=== PATIENT | male | born 1975 | race Caucasian/White ===

== ENCOUNTER 2022-08-18 01:07 | Inpatient (IN) | payer OTHER ==
[~2022-08-18] VITALS: Ht 154.9 cm; Wt 88.5 kg
[2022-08-18] MEDS ORDERED: METHYLPREDNISOLONE SOD SUCC 125 MG/2 ML VIAL IV STA (01:27)
[2022-08-18] MEDS ORDERED: MAGNESIUM 2 G PREMIX 50 ML IV STA (01:27)
[2022-08-18] MEDS ORDERED: ALBUTEROL (0.083%) 2.5MG/3ML NEB HHN STA (01:27)
[2022-08-18] MEDS ORDERED: IPRATROPIUM BROMIDE (0.02%) 0.5MG/2.5ML NEB HHN STA (01:27)
[2022-08-18] MEDS ORDERED: SODIUM CHLORIDE 0.9% 1,000 ML IV ONE (01:30)
[2022-08-18 01:41] LABS: BASOPHILS % 0.8 % (0.0-2.0); EOSINOPHILS % 2.2 % (0.0-5.0); HEMATOCRIT. 36.4 % (42.0-52.0); LYMPHOCYTES % 24.9 % (20.0-50.0); MEAN CORPUSCULAR HEMOGLOBIN 25.1 pg (28.0-32.0); MEAN CORPUSCULAR VOLUME 76.5 fL (80.0-94.0); MEAN PLATELET VOLUME 8.9 fl (7.4-10.4); MONOCYTES % 5.4 % (2.0-8.0); NEUTROPHILS % 66.7 % (40.0-76.0); PLATELET 212 x1000/uL (130-400); RED BLOOD CELL COUNT 4.76 mill/uL (4.7-6.1); RED CELL DISTRIBUTION WIDTH 16.5 % (11.6-14.6)
[2022-08-18 01:48] LABS: CHLORIDE 104 mEq/L (98-107)
[2022-08-18] MEDS ORDERED: CEFTRIAXONE 1GM PREMIX 50 ML IV NR (02:30)
[2022-08-18] MEDS ORDERED: AZITHROMYCIN 500MG/250ML 250 ML IV NR (02:30)
[2022-08-18] MEDS ORDERED: HYDROCODONE/ACETAMINOPHEN 5/325MG TABLET PO ONE (04:00)
[2022-08-18] MEDS ORDERED: ASPIRIN 325MG TABLET PO ONE (04:00)
[2022-08-18] MEDS ORDERED: HEPARIN 5000 UNITS/ML VIAL IV ONE (04:15)
[2022-08-18] MEDS ORDERED: HEPARIN 25,000 UNITS PREMIX 250 ML IV ONE (04:15)
[2022-08-18 04:39] LABS: INR 1.1; PARTIAL THROMBOPLASTIN TIME 26.6 sec (23.4-31.0); PROTHROMBIN TIME 11.4 sec (9.6-11.0)
[2022-08-18] MEDS ORDERED: HEPARIN 25,000 UNITS PREMIX 250 ML IV SCH (04:45)
[2022-08-18] MEDS ORDERED: HEPARIN 60 UNITS/KG BOLUS IV NR (05:00)
[2022-08-18] MEDS ORDERED: FUROSEMIDE 40MG/4ML VIAL IVP ONE (05:45)
[2022-08-18 10:00] LABS: BG BASE EXCESS -5.5 mmol/L (-2.0-2.0); BG DEOXYHEMOGLOBIN 0.5 % (0.0-5.0); BG FRACTION INSPIRED OXYGEN 100; BG HCO3 ACT 19.6 mmol/L (22.0-26.0); BG METHEMOGLOBIN 0.8 % (0.0-1.5); BG OXYGEN SATURATION 99.5 % (92.0-98.5); BG OXYHEMOGLOBIN 98.7 % (94.0-97.0); BG PCO2 37.4 mmHg (35.0-45.0); BG PH 7.338 (7.350-7.450); BG PO2 350.5 mmHg (75.0-100.0); BG SAMPLE SITE RIGHT RADIAL; BG TOTAL HEMOGLOBIN 13.7 g/dL (12.0-18.0); BG VENT MODE MASK - BIPAP
[2022-08-18] MEDS ORDERED: MONTELUKAST SODIUM 10MG TABLET PO NR (10:15)
[2022-08-18] MEDS ORDERED: IPRATROPIUM/ALBUTEROL 0.5-3(2.5)MG/3ML NEB HHN PRN (10:15)
[2022-08-18] MEDS ORDERED: FUROSEMIDE 40MG/4ML VIAL IVP NR (10:15)
[2022-08-18] MEDS ORDERED: DEXTROSE 50% WATER 50ML SYRINGE IV PRN (10:30)
[2022-08-18] MEDS ORDERED: HEPARIN BOLUS PRN aPTT <30 IV (11:00)
[2022-08-18] MEDS ORDERED: HEPARIN BOLUS PRN aPTT 30-44 IV (11:00)
[2022-08-18] MEDS: IPRATROPIUM/ALBUTEROL 0.5-3(2.5)MG/3ML NEB HHN SCH ×3 (11:15→19:55)
[2022-08-18] MEDS: METHYLPREDNISOLONE SOD SUCC 125 MG/2 ML VIAL IV SCH ×3 (12:25→23:13)
[2022-08-18] MEDS: BLOOD SUGAR DIAGNOSTIC STRIP TEST SCH ×3 (13:10→21:04)
[2022-08-18] MEDS ORDERED: IOHEXOL-350 100 ML BOTTLE ONE (13:11)
[2022-08-18] MEDS ORDERED: INSULIN GLARGINE 100 UNITS/ML SUBCUT NR (13:15)
[2022-08-18] MEDS: INSULIN LISPRO 100 UNITS/ML SUBCUT SCH ×3 (13:23→21:19)
[2022-08-18] MEDS: FUROSEMIDE 40MG/4ML VIAL IVP SCH (13:24)
[2022-08-18 16:00] VITALS: BP 127/78
[2022-08-18 17:23] VITALS: BP 127/78
[2022-08-18] MEDS: ENOXAPARIN 100MG/ML SYR SUBCUT SCH (17:46)
[2022-08-18 20:00] VITALS: BP 110/70
[2022-08-18] MEDS: FAMOTIDINE 20MG/2ML VIAL IV SCH (21:18)
[2022-08-18] MEDS ORDERED: INSULIN GLARGINE 100 UNITS/ML SUBCUT SCH (22:00)
[2022-08-19] VITALS: BP 128/80
[2022-08-19] MEDS: IPRATROPIUM/ALBUTEROL 0.5-3(2.5)MG/3ML NEB HHN SCH ×7 (00:43→23:58)
[2022-08-19 04:00] VITALS: BP 113/74
[2022-08-19] MEDS: BLOOD SUGAR DIAGNOSTIC STRIP TEST SCH ×4 (05:52→21:00)
[2022-08-19] MEDS: METHYLPREDNISOLONE SOD SUCC 125 MG/2 ML VIAL IV SCH ×3 (06:25→16:58)
[2022-08-19] MEDS: ENOXAPARIN 100MG/ML SYR SUBCUT SCH ×2 (06:26→16:05)
[2022-08-19] MEDS: INSULIN LISPRO 100 UNITS/ML SUBCUT SCH ×4 (06:29→21:45)
[2022-08-19 08:00] VITALS: BP 104/68
[2022-08-19] MEDS: FUROSEMIDE 40MG/4ML VIAL IVP SCH ×2 (09:02→16:58)
[2022-08-19] MEDS: LORATADINE 10MG TABLET PO SCH (09:03)
[2022-08-19] MEDS: ASPIRIN 81MG TABLET PO SCH (09:03)
[2022-08-19 09:46] LABS: HEMOGLOBIN. 11.7 g/dL (14.0-18.0); MEAN PLATELET VOLUME 9.6 fl (7.4-10.4); PLATELET 232 x1000/uL (130-400); RED BLOOD CELL COUNT 4.67 mill/uL (4.7-6.1); RED CELL DISTRIBUTION WIDTH 16.4 % (11.6-14.6)
[2022-08-19 09:56] LABS: CHLORIDE 105 mEq/L (98-107)
[2022-08-19] MEDS: FAMOTIDINE 20MG/2ML VIAL IV SCH (09:58)
[2022-08-19] MEDS: INSULIN GLARGINE 100 UNITS/ML SUBCUT SCH ×2 (10:00→21:46)
[2022-08-19] MEDS ORDERED: FUROSEMIDE 40MG/4ML VIAL IVP SCH (10:45)
[2022-08-19 11:36] LABS: *AMPHETAMINES SCREEN URINE NEGATIVE (NEGATIVE); *BARBITURATES SCREEN URINE NEGATIVE (NEGATIVE); *BENZODIAZEPINES SCREEN URINE NEGATIVE (NEGATIVE); *COCAINE SCREEN URINE NEGATIVE (NEGATIVE); CANNABINOID URINE SCREEN NEGATIVE (NEGATIVE); METHADONE URINE SCREEN NEGATIVE (NEGATIVE); OPIATES URINE SCREEN NEGATIVE (NEGATIVE); PHENCYCLIDINE URINE SCREEN NEGATIVE (NEGATIVE)
[2022-08-19 14:09] LABS: PLATELET ESTIMATE NORMAL
[2022-08-19 16:00] VITALS: BP 106/62
[2022-08-19] MEDS ORDERED: CEFTRIAXONE 1GM PREMIX 50 ML IV SCH (16:30)
[2022-08-19] MEDS: NITROGLYCERIN OINT 1GM/INCH UDPKT TD SCH ×2 (16:58→21:49)
[2022-08-19] MEDS: CEFTRIAXONE 1,000 MG in DEXTROSE 5% WATER 50 ML IV SCH (16:59)
[2022-08-19 20:00] VITALS: BP 114/73
[2022-08-19] MEDS: FAMOTIDINE 20MG TABLET PO SCH (21:37)
[2022-08-20] VITALS: BP 115/73
[2022-08-20 04:00] VITALS: BP 119/77
[2022-08-20] MEDS: IPRATROPIUM/ALBUTEROL 0.5-3(2.5)MG/3ML NEB HHN SCH ×5 (04:07→20:00)
[2022-08-20 05:43] LABS: HEMATOCRIT. 34.6 % (42.0-52.0); HEMOGLOBIN. 11.2 g/dL (14.0-18.0); MEAN CORPUSCULAR HEMOGLOBIN 24.7 pg (28.0-32.0); MEAN CORPUSCULAR VOLUME 76.1 fL (80.0-94.0); MEAN PLATELET VOLUME 9.6 fl (7.4-10.4); PLATELET 215 x1000/uL (130-400); RED BLOOD CELL COUNT 4.54 mill/uL (4.7-6.1); RED CELL DISTRIBUTION WIDTH 16.3 % (11.6-14.6)
[2022-08-20] MEDS: ENOXAPARIN 100MG/ML SYR SUBCUT SCH ×2 (05:57→19:48)
[2022-08-20] MEDS: BLOOD SUGAR DIAGNOSTIC STRIP TEST SCH ×4 (06:21→21:00)
[2022-08-20] MEDS: INSULIN LISPRO 100 UNITS/ML SUBCUT SCH ×4 (06:28→22:04)
[2022-08-20] MEDS: NITROGLYCERIN OINT 1GM/INCH UDPKT TD SCH ×3 (06:28→22:05)
[2022-08-20] MEDS: FUROSEMIDE 40MG/4ML VIAL IVP SCH ×2 (06:33→17:15)
[2022-08-20] MEDS ORDERED: SODIUM CHLORIDE 0.45% 500 ML IV ONE (07:00)
[2022-08-20 07:27] LABS: CHLORIDE 101 mEq/L (98-107)
[2022-08-20 08:00] VITALS: BP 114/69
[2022-08-20] MEDS: FAMOTIDINE 20MG TABLET PO SCH ×2 (08:44→22:05)
[2022-08-20] MEDS: ASPIRIN 81MG TABLET PO SCH (08:45)
[2022-08-20] MEDS: LORATADINE 10MG TABLET PO SCH (08:45)
[2022-08-20] MEDS: PREDNISONE 20MG TABLET PO SCH (08:45)
[2022-08-20] MEDS: INSULIN GLARGINE 100 UNITS/ML SUBCUT SCH ×2 (10:00→22:04)
[2022-08-20 12:05] VITALS: BP 116/76
[2022-08-20] MEDS ORDERED: HEPARIN 1000 UNITS/ML 10ML ONE (13:57)
[2022-08-20] MEDS ORDERED: IODIXANOL 320MG/ML 100 ML BOTTLE IV ONE (13:57)
[2022-08-20] MEDS ORDERED: LIDOCAINE HCL/PF 1% 10 MG/ML 5ML VIAL ONE (13:57)
[2022-08-20] MEDS ORDERED: ASPIRIN/SOD BICARB/CITRIC ACID 324MG TAB EFF ONE (13:57)
[2022-08-20] MEDS ORDERED: FENTANYL CITRATE/PF 50MCG/ML 2ML VIAL ONE (14:30)
[2022-08-20] MEDS ORDERED: MIDAZOLAM HCL 2 MG/2 ML VIAL ONE (14:30)
[2022-08-20] MEDS ORDERED: ATROPINE SULFATE 1MG/10ML SYR IV PRN (15:30)
[2022-08-20] MEDS ORDERED: SODIUM CHLORIDE 0.45% 1,000 ML IV ONE (15:30)
[2022-08-20] MEDS ORDERED: MORPHINE SULFATE 2 MG/ML CPJ (NOT FOR IM USE) IV PRN (15:30)
[2022-08-20] MEDS ORDERED: ACETAMINOPHEN 325MG TABLET PO PRN (15:30)
[2022-08-20] MEDS ORDERED: ONDANSETRON HCL 4MG/2ML INJ IV PRN (15:30)
[2022-08-20 16:00] VITALS: BP 121/79
[2022-08-20] MEDS ORDERED: NALOXONE HCL 0.4MG/ML VIAL IV PRN (17:00)
[2022-08-20 20:00] VITALS: BP 128/81
[2022-08-20] MEDS: CEFTRIAXONE 1,000 MG in DEXTROSE 5% WATER 50 ML IV SCH (22:04)
[2022-08-20] MEDS: FLUTICASONE PROPIONATE 50MCG/SPRAY BOTTLE BOTHNSTRLS SCH (22:04)
[2022-08-20] MEDS: CARVEDILOL 3.125 MG TABLET PO SCH (22:05)
[2022-08-21 00:11] VITALS: BP 98/71
[2022-08-21] MEDS: IPRATROPIUM/ALBUTEROL 0.5-3(2.5)MG/3ML NEB HHN SCH ×4 (04:00→21:56)
[2022-08-21 04:07] VITALS: BP 105/66
[2022-08-21] MEDS: ENOXAPARIN 100MG/ML SYR SUBCUT SCH ×2 (05:42→21:16)
[2022-08-21] MEDS: NITROGLYCERIN OINT 1GM/INCH UDPKT TD SCH ×3 (05:43→21:15)
[2022-08-21 06:15] LABS: HEMATOCRIT. 33.5 % (42.0-52.0); HEMOGLOBIN. 10.9 g/dL (14.0-18.0); LYMPHOCYTES % 9.1 % (20.0-50.0); MEAN CORPUSCULAR HEMOGLOBIN 24.8 pg (28.0-32.0); MEAN CORPUSCULAR VOLUME 76.3 fL (80.0-94.0); MEAN PLATELET VOLUME 9.1 fl (7.4-10.4); MONOCYTES % 5.6 % (2.0-8.0); NEUTROPHILS % 85.3 % (40.0-76.0); PLATELET 203 x1000/uL (130-400); RED BLOOD CELL COUNT 4.38 mill/uL (4.7-6.1); RED CELL DISTRIBUTION WIDTH 16.2 % (11.6-14.6)
[2022-08-21] MEDS: INSULIN LISPRO 100 UNITS/ML SUBCUT SCH ×4 (06:47→21:14)
[2022-08-21] MEDS: BLOOD SUGAR DIAGNOSTIC STRIP TEST SCH ×4 (06:47→21:15)
[2022-08-21 07:19] LABS: PLATELET ESTIMATE NORMAL
[2022-08-21 08:00] VITALS: BP 112/66
[2022-08-21 08:08] LABS: CHLORIDE 104 mEq/L (98-107)
[2022-08-21] MEDS: FUROSEMIDE 40MG/4ML VIAL IVP SCH ×2 (08:15→18:14)
[2022-08-21] MEDS: FAMOTIDINE 20MG TABLET PO SCH ×2 (09:26→21:14)
[2022-08-21] MEDS: PREDNISONE 20MG TABLET PO SCH (09:26)
[2022-08-21] MEDS: LORATADINE 10MG TABLET PO SCH (09:26)
[2022-08-21] MEDS: ASPIRIN 81MG TABLET PO SCH (09:26)
[2022-08-21] MEDS: FLUTICASONE PROPIONATE 50MCG/SPRAY BOTTLE BOTHNSTRLS SCH ×2 (09:27→21:15)
[2022-08-21] MEDS: CARVEDILOL 3.125 MG TABLET PO SCH ×2 (10:23→21:14)
[2022-08-21] MEDS: INSULIN GLARGINE 100 UNITS/ML SUBCUT SCH ×2 (10:47→21:13)
[2022-08-21 12:00] VITALS: BP 118/78
[2022-08-21] MEDS ORDERED: ENOX40SY27 SQ (15:16)
[2022-08-21] MEDS ORDERED: COR3 PO (15:18)
[2022-08-21] MEDS ORDERED: LANTUSUD SUBCUT (15:18)
[2022-08-21] MEDS ORDERED: ALBU18HF2 IH (15:18)
[2022-08-21] MEDS ORDERED: FURO-151 MT (15:18)
[2022-08-21] MEDS ORDERED: FLUT1DIS3 INH (15:18)
[2022-08-21 16:00] VITALS: BP 126/80
[2022-08-21] MEDS: CEFTRIAXONE 1,000 MG in DEXTROSE 5% WATER 50 ML IV SCH (18:14)
[2022-08-21 20:00] VITALS: BP 126/75
[2022-08-22] VITALS: BP 115/74
[2022-08-22] MEDS: IPRATROPIUM/ALBUTEROL 0.5-3(2.5)MG/3ML NEB HHN SCH ×4 (01:53→12:19)
[2022-08-22 04:00] VITALS: BP 110/71
[2022-08-22] MEDS: INSULIN LISPRO 100 UNITS/ML SUBCUT SCH ×2 (07:04→12:33)
[2022-08-22] MEDS: NITROGLYCERIN OINT 1GM/INCH UDPKT TD SCH (07:04)
[2022-08-22] MEDS: BLOOD SUGAR DIAGNOSTIC STRIP TEST SCH ×2 (07:04→11:50)
[2022-08-22] MEDS: FUROSEMIDE 40MG/4ML VIAL IVP SCH (07:04)
[2022-08-22] MEDS: ENOXAPARIN 100MG/ML SYR SUBCUT SCH (07:05)
[2022-08-22 07:27] LABS: CHLORIDE 106 mEq/L (98-107)
[2022-08-22 07:33] LABS: BASOPHILS % 0.1 % (0.0-2.0); EOSINOPHILS % 0.7 % (0.0-5.0); HEMATOCRIT. 35.4 % (42.0-52.0); HEMOGLOBIN. 11.6 g/dL (14.0-18.0); LYMPHOCYTES % 33.8 % (20.0-50.0); MEAN CORPUSCULAR HEMOGLOBIN 25.1 pg (28.0-32.0); MEAN CORPUSCULAR VOLUME 76.6 fL (80.0-94.0); MEAN PLATELET VOLUME 9.4 fl (7.4-10.4); MONOCYTES % 6.8 % (2.0-8.0); NEUTROPHILS % 58.6 % (40.0-76.0); PLATELET 194 x1000/uL (130-400); RED BLOOD CELL COUNT 4.63 mill/uL (4.7-6.1); RED CELL DISTRIBUTION WIDTH 16.4 % (11.6-14.6)
[2022-08-22 08:00] VITALS: BP 116/77
[2022-08-22] MEDS: LORATADINE 10MG TABLET PO SCH (08:06)
[2022-08-22] MEDS: FAMOTIDINE 20MG TABLET PO SCH (08:06)
[2022-08-22] MEDS: CARVEDILOL 3.125 MG TABLET PO SCH (08:06)
[2022-08-22] MEDS: PREDNISONE 20MG TABLET PO SCH (08:06)
[2022-08-22] MEDS: ASPIRIN 81MG TABLET PO SCH (08:07)
[2022-08-22] MEDS: FLUTICASONE PROPIONATE 50MCG/SPRAY BOTTLE BOTHNSTRLS SCH (08:07)
[2022-08-22] MEDS ORDERED: POTASSIUM CHLORIDE 20MEQ TABLET SR PO NR (09:00)
[2022-08-22] MEDS: INSULIN GLARGINE 100 UNITS/ML SUBCUT SCH (10:04)
[2022-08-22 11:15] VITALS: BP 116/77
[2022-08-22 12:00] VITALS: BP 96/54
== END 2022-08-22 13:30 | disposition home or self-care (01) | DRG 190 ==
LOC: ER 01:07 → 7EST 04:20 → EDBEDREQSVC 07:53 → 3WST 08-20 17:45
PROVIDERS: ADMIT Internal Medicine; ATTEND Internal Medicine
PROC: 5A09357 Assistance with Respiratory Ventilation, Less than 24 Consecutive Hours, Continuous Positive Airway Pressure (ICD-10-PCS; principal; 2022-08-18)
PROC: 4A023N7 Measurement of Cardiac Sampling and Pressure, Left Heart, Percutaneous Approach (ICD-10-PCS; 2022-08-20)
PROC: B2111ZZ Fluoroscopy of Multiple Coronary Arteries using Low Osmolar Contrast (ICD-10-PCS; 2022-08-20)
DX: I21.4 Non-ST elevation (NSTEMI) myocardial infarction (principal); J96.01 Acute respiratory failure with hypoxia; I50.43 Acute on chronic combined systolic (congestive) and diastolic (congestive) heart failure; I42.0 Dilated cardiomyopathy; J45.901 Unspecified asthma with (acute) exacerbation; E11.65 Type 2 diabetes mellitus with hyperglycemia; D64.9 Anemia, unspecified; E66.9 Obesity, unspecified; Z68.36 Body mass index [BMI] 36.0-36.9, adult; I25.10 Atherosclerotic heart disease of native coronary artery without angina pectoris; I51.3 Intracardiac thrombosis, not elsewhere classified; Z20.822 Contact with and (suspected) exposure to COVID-19; Z95.1 Presence of aortocoronary bypass graft; Z86.16 Personal history of COVID-19
CPT/HCPCS: 36415; 36600; 71045; 71275; 80048; 80305; 82375; 82805; 82962; 83036; 83605; 83735; 83880; 84145; 84484; 85025; 87426; 93005; 93306; 93454; 94640; 94660; 99291; C1769; C1887; C1893; J0456; J0696; J1644; J1650; J1815; J1940; J2250; J2270; J2930; J3010; J3475; J3490; J7030; J7060; J7512; Q9967